=== PATIENT | female | born 1950 | race Caucasian/White ===

== ENCOUNTER 2019-06-15 02:09 | Outpatient (CLI) | payer MEDICARE, SELFPAY ==
[2019-06-15 10:40] LABS: Hemoglobin A1C 5.6 % (4.5-6.2)
[2019-06-15 12:18] LABS: ALT 42 U/L (14-59); AST 24 U/L (15-37); Albumin 3.9 g/dL (3.4-5.0); Alkaline Phosphatase 99 U/L (46-116); Anion Gap 8.7 mmol/L (3-11); BUN 23 mg/dL (7-18); Bilirubin, Total 0.4 mg/dL (0.2-1.0); CO2 29.3 mmol/L (21.0-32.0); CREATININE 0.97 mg/dL (0.55-1.02); Calcium 9.5 mg/dL (8.5-10.1); Calculated LDL 199 mg/dL; Chloride 102 mmol/L (98-107); Cholesterol 300 mg/dL (50-200); Estimated GFR 57.28 (mL/min/1.73m2); Glucose 104 mg/dL (70-100); HDL Cholesterol 79 mg/dL (40-60); Potassium 4.5 mmol/L (3.5-5.1); Sodium 140 mmol/L (136-145); TSH (W/Ref FT4) 1.93 uIU/mL (0.36-3.74); Total Protein 7.5 g/dL (6.4-8.2); Triglyceride 113 mg/dL (30-150)
== END 2019-06-15 02:29 ==
PROVIDERS: PCP Family Medicine; Visit Provider Family Medicine
DX: R79.89 Other specified abnormal findings of blood chemistry (principal); R73.09 Other abnormal glucose; I49.9 Cardiac arrhythmia, unspecified; R03.0 Elevated blood-pressure reading, without diagnosis of hypertension; I23.8 Other current complications following acute myocardial infarction
CPT/HCPCS: 36415; 80053; 80061; 83036; 84443

== ENCOUNTER 2021-04-03 01:37 | Outpatient (CLI) | payer MEDICARE, SELFPAY ==
--- NOTE | 2021-04-03 07:00 | DI.MAMMO_ITS ---
Exam(s) MAMMO SCREENING EXAM: MAMMO SCREENING CLINICAL HISTORY: screening,z12.39 TECHNIQUE: Mammograms were interpreted according to the usual protocol including computer analysis w [employer] CAD system, tomosynthesis and C-view imaging. COMPARISON: 2011 through 2017 FINDINGS: The breasts are composed of heterogeneously dense fibroglandular densities, Breast Density category C . No suspicious masses or suspicious microcalcifications are seen. No skin thickening or abnormal axillary lymph nodes are seen. There has been no significant change from prior exams. IMPRESSION: BI-RADS Category 1, Negative mammogram. Yearly screening mammography is recommended. Breast Density Category C, heterogeneously Dense. The mammogram demonstrates the patient's breast tissue is dense. Dense breast tissue is very common a nd is not abnormal but dense breast tissue can make it harder to find cancer on a mammogram. Also, de nse breast tissue may increase breast cancer risk. This information about the result of the mammogram report was provided to the patient to raise their awareness. Use this report when you speak with the patient about their risks for breast cancer, which includes their family history. At that time, you may recommend additional screening tests (Ultrasound or MRI) as they might be useful based on their r isk. A negative radiographic report should not delay biopsy if a dominant or clinically suspicious mass is present. Up to ten percent of cancers are not identified on mammography. A negative report may reinforce clinical impression. Adenosis and dense breasts may obscure an underlying neoplasm. False positive reports average 6 to 10%.
== END 2021-04-03 01:57 ==
PROVIDERS: PCP Family Medicine; Visit Provider Nurse Practitioner Family
DX: Z12.31 Encounter for screening mammogram for malignant neoplasm of breast (principal)
CPT/HCPCS: 77063; 77067

== ENCOUNTER 2022-02-22 03:35 | Outpatient (RCR) | payer MEDICARE, SELFPAY ==
--- NOTE | 2022-02-22 13:00 | HOLTER_ITS ---
APPROVED REPORT Conclusion This is a 48-hour Holter monitor ordered for dizziness Predominant rhythm is sinus with an average heart rate of 71. Minimum was 55, maximum 118 There were very rare isolated atrial and ventricular ectopic beats There was no atrial fibrillation, no high-grade AV block, no pauses greater than 3 seconds No patient symptoms were reported
== END 2022-03-24 23:59 | disposition home or self-care (01) ==
LOC: RT 03:35
PROVIDERS: PCP Family Medicine; Visit Provider Family Medicine
DX: R42 Dizziness and giddiness (principal); R25.1 Tremor, unspecified
CPT/HCPCS: 93227; 93225; 93226

== ENCOUNTER 2022-03-05 02:53 | Outpatient (CLI) | payer MEDICARE, SELFPAY ==
[2022-03-05 07:32] LABS: HCT 43.4 % (36.0-46.0); HGB 14.5 g/dL (11.2-15.7); MCH 31.3 pg (27.0-33.0); MCHC 33.4 % (32.0-36.0); MCV 94 fL (80-95); MPV 9.5 fL (8.0-11.0); Platelet Count 293 10^3/uL (130-400); RBC 4.64 10^6/uL (3.93-5.22); RDW 11.9 % (11.7-14.6); WBC 5.58 10^3/uL (4.4-10.8)
[2022-03-05 09:22] LABS: ALT 31 U/L (14-59); AST 28 U/L (15-37); Albumin 4.1 g/dL (3.4-5.0); Alkaline Phosphatase 93 U/L (46-116); Anion Gap 8.9 mmol/L (3-11); BUN 21 mg/dL (7-18); Bilirubin, Total 0.5 mg/dL (0.2-1.0); CO2 30.1 mmol/L (21.0-32.0); Calcium 9.4 mg/dL (8.5-10.1); Calculated LDL 212 mg/dL (<100); Chloride 104 mmol/L (98-107); Cholesterol 312 mg/dL (<200); Estimated GFR 54.97 (mL/min/1.73m2); Glucose 105 mg/dL (74-106); HDL Cholesterol 89 mg/dL (40-60); Potassium 4.1 mmol/L (3.5-5.1); Sodium 143 mmol/L (136-145); TSH (W/Ref FT4) 2.78 uIU/mL (0.36-3.74); Triglyceride 56 mg/dL (<150)
== END 2022-03-05 02:54 | disposition home or self-care (01) ==
PROVIDERS: PCP Family Medicine; Visit Provider Family Medicine
DX: E78.5 Hyperlipidemia, unspecified (principal); I10 Essential (primary) hypertension; R42 Dizziness and giddiness; R01.1 Cardiac murmur, unspecified; R25.1 Tremor, unspecified
CPT/HCPCS: 36415; 80053; 80061; 85027; 84443

== ENCOUNTER → 2022-04-04 00:49 | Outpatient (CLI) | payer MEDICARE, SELFPAY ==
--- NOTE | 2022-04-04 07:45 | DI.US_ITS ---
Exam(s) US CAROTID EXAM: US CAROTID CLINICAL HISTORY: episode of tremoultuous; family h/o stroke,dizziness,r42,z82.3. TECHNIQUE: Ultrasound carotids performed using grayscale, color-flow, and spectral Doppler imaging. COMPARISON: No exams were available for comparison FINDINGS: RIGHT CAROTID ARTERY: Plaque: Mild at the proximal internal carotid artery.. Velocity elevation: None. LEFT CAROTID ARTERY: Plaque: Moderate plaque seen in mid left ICA. Velocity elevation: None. VERTEBRAL ARTERIES: Antegrade flow. Measurements: R Bulb: 119.3cm/s PS / 28.8cm/s ED R CCA: 126.5cm/s PS / 28.8cm/s ED R ECA: 99.37cm/s PS / 12.37cm/s ED R ICA Prox: 113.9cm/s PS / 39cm/s ED R ICA Mid: 117.4cm/s PS / 42.6cm/s ED R ICA Distal: 129.8cm/s PS /44.9cm/s ED R Vert: 47.8cm/s PS / 20.4cm/s ED R SVR: 1 R DVR: 1.4 L Bulb: 90.4cm/s PS / 21.2cm/s ED L CCA: 131.6cm/s PS / 24.4cm/s ED L ECA: 116.4cm/s PS / 34cm/s ED L ICA Prox: 105.7cm/s PS / 38.7cm/s ED L ICA Mid: 150.9cm/s PS / 50.5cm/s ED L ICA Distal: 124 PS/11 ED L Vert: 75cm/s PS / 23.5cm/s ED L SVR:1.1 L DVR:1.8 IMPRESSION: Right carotid: No evidence for hemodynamically significant carotid stenosis. Left carotid: Moderate quantity of plaque in the mid internal carotid artery a moderate degree of any nosis 50-69 percent. Criteria for Carotid Stenosis: Normal: ICA PSV <125 cm/s no plaque or intimal thickening is visible. <50% stenosis: ICA PSV <125 cm/s and plaque or intimal thickening is visible. 50-69% stenosis: ICA PSV is 125-250 cm/s and plaque is visible. >70% stenosis to near occlusion: ICA PSV >250 cm/s with visible plaque and luminal narrowing. DATA REPOSITORY:
== END ==
PROVIDERS: PCP Family Medicine; Visit Provider Family Medicine
DX: R42 Dizziness and giddiness (principal); Z82.3 Family history of stroke; I65.22 Occlusion and stenosis of left carotid artery
CPT/HCPCS: 93880

== ENCOUNTER → 2022-04-18 00:51 | Outpatient (CLI) | payer MEDICARE, SELFPAY ==
--- NOTE | 2022-04-18 06:45 | DI.US_ITS ---
APPROVED REPORT EXAM: Comprehensive 2D, Doppler, and color-flow Echocardiogram Patient Location: Out-Patient Clinical Educator: Cynthia Cisneros RDCS (AE) Indications: Systolic murmur, Lightheaded Other Information Study Quality: Fair. Technically limited study due to body habitus. Conclusion Normal left ventricular wall thickness and chamber size. Estimated ejection fraction is 55%. Wall m otion is normal Normal right ventricular size and systolic function Both atria are normal in size Aortic valve is sclerotic and trileaflet without stenosis or regurgitation Estimated right ventricular systolic pressure is 25.5 mmHg Wall motion Left Ventricle The left ventricle is normal size. The left ventricular systolic function is normal. The left ventric ular ejection fraction is within the normal range. There is normal left ventricular wall thickness. T here is normal LV segmental wall motion. There is no ventricular septal defect visualized. LVEF is 55 %. Right Ventricle Right ventricle is grossly normal in size. Right ventricular systolic function is grossly normal. The RVSP is 25.5 mmHg. Atria The left atrium size is normal. The right atrium size is normal. The interatrial septum is intact wit h no evidence for an atrial septal defect. Aortic Valve The Aortic valve is sclerotic. Aortic valve is trileaflet. There is no aortic valvular stenosis. Mitral Valve The mitral valve is normal in structure. No evidence of mitral valve stenosis. Trace mitral regurgita tion. Tricuspid Valve The tricuspid valve is normal in structure. There is no tricuspid valve stenosis. Trace to mild tricu spid regurgitation. Pulmonic Valve The pulmonary valve is normal in structure. There is no pulmonic valvular stenosis. There is no pulmo antony valvular regurgitation. Great Vessels The aortic root is normal in size. Ascending aorta is not well visualized. Aortic arch is normal in c aliber. IVC is normal in size and collapses >50% with inspiration. Pericardium There is no pericardial effusion. 2D Dimensions IVSD d PLAX 0.75 cm F: 0.6-1.0 LV Vol A2C d MOD 96.6 mL LVPW d PLAX 0.74 cm F: 0.6 - 1.0 LV Vol A4C d MOD 65.9 mL LVID d PLAX 4.10 cm F: 3.8 - 5.2 LV EF A4C MOD 55.8 % LVDs 2.95 cm F: 2.2 - 3.5 LV EF A2C MOD 55.4 % Ao Root d 2.47 cm F: 2.7 - 3.3 LV EF Biplane MOD 55.0 % RA Area A4C 10.08 cm2 SV 44.11 mL RA Vol/ BSA A4C s A-L 15.1 mL/m2 SV Index 29.07 mL/m2 LV EF Teichholz 53.9 % LVEF (Matamoros's) 55.05 % F: 54 - 74 LV Volume 66.47 mL F: 46 - 106 LV Volume Index 44.01 mL/m2 F: 29 - 61 LV Vol Biplane MOD 80.1 mL FS 27.45 % M-Mode TAPSE 2.99 cm (M/F) >1.7 LV Diastology MV E' medial 0.129 (>0.07 m/s) E/A Ratio 1.0 LV E/e MED 5.05 (<14) MV E Vmax 0.65 (0.4-1.3 m/s) MV E' lateral 0.108 (>0.1 m/s) MV A Vmax 0.65 (0.4-1.3 m/s) LV E/e LAT 6.05 (<14) MV E/A Ratio 0.96 MV E/E' medial 5.07 MV E/E' lateral 6.08 Aortic Valve LVOT Area 3.53 cm2 AoV Area Vmax 2.00 cm2 LVOT Vmax 0.90 m/s AoV Area/ BSA (Vmax) 1.32 cm2/m2 LVOT Mean Pedro. 0.64 m/s LEANDRO Mean Pedro. 2.02 cm2 LVOT Peak Grad 3.3 mmHg LEANDRO Mean Pedro. Index 1.33 cm2/m2 LVOT Mean Grad 1.8 mmHg LVOT VTI 0.213 m LVOT Diam s 2.10 cm AoV Vmax 1.60 m/s Velocity Ratio 0.56 AoV Mean Pedro. 1.12 m/s AoV Peak Grad 10.3 mmHg LVOT SV 75.19 mL AoV Mean Grad 5.6 mmHg AoV VTI 0.347 m AoV Area VTI 2.17 cm2 AoV Area/ BSA (VTI) 1.43 cm/m2 Mitral Valve MV DT 195 (160-240 msec) MV PHT 56 msec MV Area PHT 3.90 cm2 MV VTI 0.243 m MV Area VTI 3.09 (4.0-6.0 cm2) Pulmonary Valve PV Vmax 1.59 (0.5-1.5 m/s) RVOT Peak Gr. 2.57 mmHg PV Peak Grad 10.1 mmHg RVOT Mean Gr. 1.40 mmHg PV Mean Grad 6.6 mmHg RVOT VTI 0.185 m PV VTI 0.321 m RVOT Vmax 0.80 m/s Tricuspid Valve TR Peak Grad 22.4 mmHg TR Vmax 2.37 m/s RA Pressure 3.00 mmHg RVSP (TR) 25.5 mmHg
== END ==
PROVIDERS: PCP Family Medicine; Visit Provider Family Medicine
DX: R42 Dizziness and giddiness (principal); R01.1 Cardiac murmur, unspecified; R25.1 Tremor, unspecified; I35.8 Other nonrheumatic aortic valve disorders
CPT/HCPCS: 93306

== ENCOUNTER 2023-11-11 04:46 | Outpatient (CLI) | payer MEDICARE, SELFPAY ==
[2023-11-11] MEDS: Levalbuterol HFA 15 GM INH 4 PUFF IH (15:52)
[2023-11-11] MEDS: Inhaler, Assist Device 1 EACH MC (15:52)
--- NOTE | 2023-11-13 14:33 | W.PFT ---
Date of service: 11/11/23 Time of Service: 14:48 Pulmonary Function Test Result Indications: Dyspnea Interpretation Spirometry: There is mild airflow limitation. There is a significant bronchodilator response. Lung Volumes: Hyperinflation and air trapping Diffusion Capacity: Normal diffusion Airway Pressure: Increased airways resistance Impression Mild airflow limitation with a bronchodilator response and increased airways resistance. This can be seen in asthma or chronic bronchitis. Clinical Correlation therefore is recommended.
== END 2023-11-11 04:47 | disposition home or self-care (01) ==
PROVIDERS: PCP Family Medicine; Visit Provider Student in an Organized Health Care Education/Training Program
DX: R06.02 Shortness of breath (principal); J45.909 Unspecified asthma, uncomplicated
CPT/HCPCS: 94060; 94726; 94729

== ENCOUNTER → 2023-11-11 09:43 | Outpatient (CLI) | payer MEDICARE, SELFPAY ==
--- NOTE | 2023-11-11 09:15 | DI.RAD_ITS ---
Exam(s) XR CHEST 2V PA LATERAL EXAM: XR CHEST 2V PA LATERAL CLINICAL HISTORY: SOB R06.02 TECHNIQUE: 2D digital imaging was performed. Two views. COMPARISON: CR CHEST 2 VIEWS PA,LAT from 06/29/2013 FINDINGS: HEART: Normal size. Aorta: Not dilated. PULMONARY VASCULATURE: Normal. LUNGS: Clear. PLEURAL SPACE: No pleural effusion or pneumothorax. BONE:Scoliosis and degenerative changes. Soft tissues: Unremarkable. IMPRESSION: No acute abnormality. DATA REPOSITORY: RADIATION DOSE DELIVERED:
== END ==
PROVIDERS: PCP Family Medicine; Visit Provider Family Medicine
DX: R06.02 Shortness of breath (principal)
CPT/HCPCS: 94060; 94726; 94729; 71046

== ENCOUNTER 2024-02-25 15:21 | Outpatient (REF) | payer MEDICARE, SELFPAY | END 2024-02-25 15:22 | disposition home or self-care (01) | LOC: LBN 15:21 | PROVIDERS: PCP Family Medicine; Visit Provider Nurse Practitioner Family | DX: L03.031 Cellulitis of right toe (principal) | CPT/HCPCS: 87070; 87205 ==

== ENCOUNTER 2024-12-17 12:12 | Outpatient (REF) | payer MEDICARE, SELFPAY ==
[2024-12-17 15:22] LABS: Abs Immature Grans 0.01 10^3/uL (0.0-0.06); Absolute Basophil Count 0.02 10^3/uL (0.0-0.2); Absolute Eosinophil Count 0.04 10^3/uL (0.0-0.7); Absolute Neutrophil Count 2.79 10^3/uL (1.2-6.7); Basophils % 0.4 %; Eosinophils % 0.9 %; HGB 14.1 g/dL (11.2-15.7); Immature Grans % 0.2 %; Lymphocytes % 15.7 %; MCH 31.3 pg (27.0-33.0); MCHC 33.6 % (32.0-36.0); MCV 93 fL (80-95); MPV 11.8 fL (8.0-11.0); Monocytes % 20.2 %; Neutrophils % 62.6 %; Platelet Count 227 10^3/uL (130-400); RBC 4.51 10^6/uL (3.93-5.22); RDW 11.8 % (11.7-14.6); RDW-SD 40.3 fL; WBC 4.46 10^3/uL (4.4-10.8)
[2024-12-17 15:39] LABS: Hemoglobin A1C 5.7 % (<5.7)
[2024-12-17 16:06] LABS: ALT 29 U/L (14-59); AST 34 U/L (15-37); Albumin 3.9 g/dL (3.4-5.0); Alkaline Phosphatase 114 U/L (46-116); Anion Gap 8.6 mmol/L (3-11); BUN 23 mg/dL (7-18); Bilirubin, Total 0.3 mg/dL (0.2-1.0); CO2 27.4 mmol/L (21.0-32.0); CREATININE 1.1 mg/dL (0.55-1.02); Calculated LDL 152 mg/dL (<100); Chloride 104 mmol/L (98-107); Cholesterol 238 mg/dL (<200); Estimated GFR 53.39 (mL/min/1.73m2); Glucose 89 mg/dL (74-106); HDL Cholesterol 74 mg/dL (>or=50); Potassium 4.9 mmol/L (3.5-5.1); Sodium 140 mmol/L (136-145); TSH 1.37 uIU/mL (0.36-3.74); Total Protein 7.9 g/dL (6.4-8.2); Triglyceride 61 mg/dL (<150); Vitamin B12 561 pg/mL (193-986); Vitamin D 25 Total 55 ng/mL (30-100)
[2024-12-17 16:42] LABS: Folate > 20.0 ng/mL (8.6-20.0)
== END 2024-12-17 12:13 | disposition home or self-care (01) ==
LOC: NCHCN 12:12
PROVIDERS: Visit Provider Family Medicine
DX: M81.0 Age-related osteoporosis without current pathological fracture (principal); E09.9 Drug or chemical induced diabetes mellitus without complications; R41.840 Attention and concentration deficit; Z00.00 Encounter for general adult medical examination without abnormal findings
CPT/HCPCS: 80053; 80061; 82306; 82607; 82746; 83036; 84443; 85025

== ENCOUNTER 2025-01-18 01:39 | Outpatient (CLI) | payer MEDICARE, SELFPAY ==
--- NOTE | 2025-01-18 | DI.DEXA_ITS ---
Exam(s) XR DEXA BONE DENSITY W/WO CAROL EXAM: XR DEXA BONE DENSITY W/WO CAROL CLINICAL HISTORY: Asymptomatic menopausal state, Z78.0, postmenopausal, TECHNIQUE: Routine DEXA evaluation of the lumbar spine, hip, or forearm. COMPARISON: No exams were available for comparison FINDINGS: Performed on a Hologic unit. Lateral image: No compression fracture evident. Lumbar Spine total T-score: -0.5 which is within normal limits Hip total T-score:-1.9 which is in osteopenia range Independent reading at the level of the femoral neck yields T-score of -2.8 which is in the osteopor osis range Forearm total T-score: -0.6 which is within normal limits IMPRESSION: Bone mineral density measures in the osteoporosis range for the hip. Fracture risk is high. Bone mi neral density is in normal range for the forearm/wrist and lumbar spine. Note: Any spine fracture indicates 5x risk for subsequent spine fracture and 2x risk for subsequent h ip fracture. World Health Organization criteria for BMD interpretation classify patients: Normal...... T- Score at or above -1.0 Osteopenic... T- Score between -1.0 and -2.5 Osteoporosis... T-Score at or below -2.5
== END 2025-01-18 01:59 ==
LOC: DI 01:39
PROVIDERS: PCP Family Medicine; Visit Provider Family Medicine
DX: Z78.0 Asymptomatic menopausal state (principal); Z13.820 Encounter for screening for osteoporosis; M81.0 Age-related osteoporosis without current pathological fracture
CPT/HCPCS: 77080

== ENCOUNTER 2025-01-25 01:13 | Outpatient (CLI) | payer MEDICARE, SELFPAY ==
--- NOTE | 2025-01-25 | DI.MAMMO_ITS ---
Exam(s) MAMMO SCREENING EXAM: MAMMO SCREENING CLINICAL HISTORY: SCREENING, Z12.31. TECHNIQUE: Bilateral full field digital CC and MLO mammographic images were obtained with 3D tomosyn thesis and utilizing computer aided detection (CAD). COMPARISON: Prior mammograms were reviewed. FINDINGS: The fibroglandular tissue pattern is again noted to be moderately dense. No new significant right breast findings. However, in the left breast on the 3D MLO views there is a new lobulated noncalcified nodular density measuring 5 x 4 mm, located approximately 3 cm above the level of the nipple on the MLO view. Spot compression view recommended. There are no new malignant-appearing microcalcification groups in this region nor elsewhere in either breast. There is no significant architectural distortion nor skin thickening-retraction. IMPRESSION: 1. No radiographic evidence of malignancy in the right breast. 2. New 5 mm nodular density anteriorly in the left breast as described above. Spot compression MLO v iew and ultrasound recommended. BI-RADS Category 0 - Incomplete: Need additional imaging evaluation Breast Density - Category C - The breast are heterogeneously dense, which may obscure small masses. Breast density Category C or D implies that the patient has dense breast tissue. Dense breast tissue can make it harder to find cancer on a mammogram. Dense breast tissue is also associated with an incr eased risk of breast cancer. This information about the result of the mammogram report was provided to the patient to raise their awareness. Use this report when you speak with the patient about their risks for breast cancer, which includes their family history. At that time, you may recommend additional screening tests (Ultrasoun d or MRI) as these tests may add significant information. A negative radiographic report should not delay biopsy if a dominant or clinically suspicious mass is present. Up to ten percent of cancers are not identified on mammography. A negative report may reinforce clinical impression. Adenosis and dense breasts may obscure an underlying neoplasm. False positive reports average 6 to 10%. Patient will receive a letter notifying them of these results.
== END 2025-01-25 01:33 ==
LOC: DI 01:13
PROVIDERS: PCP Family Medicine; Visit Provider Family Medicine
DX: Z12.31 Encounter for screening mammogram for malignant neoplasm of breast (principal); R92.333 Mammographic heterogeneous density, bilateral breasts
CPT/HCPCS: 77063; 77067

== ENCOUNTER 2025-01-31 01:52 | Outpatient (CLI) | payer MEDICARE, SELFPAY ==
--- NOTE | 2025-01-31 | DI.US_ITS ---
Exam(s) MG MAMMO SCREEN CALL BACK UNI US BREAST LT COMPLETE EXAM: MG MAMMO SCREEN CALL BACK UNI-LEFT AND COMPLETE LEFT BREAST ULTRASOUND CLINICAL HISTORY: R92.8 ABN Mammo LT breast on 3D MLO new lobulated noncalcified nodular. TECHNIQUE: Unilateral LEFT BREAST spot mammographic images obtained with 3D tomosynthesisand utilizi ng computer aided detection (CAD). . Complete LEFT breast Ultrasound was also performed, including all 4 quadrants, the retroareolar regio n, and the ipsilateral axilla. COMPARISON: Prior mammograms were reviewed. This additional imaging was performed due to findings described on the recent screening mammogram of 01/25/2025. FINDINGS: DIAGNOSTIC MAMMOGRAM: Additional mammographic views performed todayare equivocal. We proceeded with ultrasound COMPLETE LEFT BREAST ULTRASOUND: Ultrasound performed today reveals a solitary finding which corresponds to the finding on the mammogr am. This is a 4 millimeter benign microcyst at the 12 o'clock position. There are no solid lesions in all 4 quadrants.. Scanning of the ipsilateral axilla reveals no significant adenopathy. IMPRESSION: 1. The finding on the mammogram corresponds to a benign 4 millimeter microcyst at the 12 o'clock pos ition. 2. No solid lesions Appropriate follow-up is to keep this patient on her yearly mammogram schedule, with earlier imaging if a self detected breast change is noted. The patient was informed of these findings and recommendations myself prior to leaving the department today. BI-RADS Category 2 - Benign Findings Breast Density - Category C - The breast are heterogeneously dense, which may obscure small masses. Breast density Category C or D implies that the patient has dense breast tissue. Dense breast tissue can make it harder to find cancer on a mammogram. Dense breast tissue is also associated with an incr eased risk of breast cancer. This information about the result of the mammogram report was provided to the patient to raise their awareness. Use this report when you speak with the patient about their risks for breast cancer, which includes their family history. At that time, you may recommend additional screening tests (Ultrasoun d or MRI) as these tests may add significant information. A negative radiographic report should not delay biopsy if a dominant or clinically suspicious mass is present. Up to ten percent of cancers are not identified on mammography. A negative report may reinforce clinical impression. Adenosis and dense breasts may obscure an underlying neoplasm. False positive reports average 6 to 10%. Patient will receive a letter notifying them of these results.
== END 2025-01-31 02:12 ==
LOC: DI 01:52
PROVIDERS: PCP Family Medicine; Visit Provider Family Medicine
DX: Z12.31 Encounter for screening mammogram for malignant neoplasm of breast (principal); N60.02 Solitary cyst of left breast
CPT/HCPCS: 76642; 77063; 77067